=== PATIENT | female | born 2000 | race Two or more races ===

== ENCOUNTER 2023-02-21 13:33 | Emergency (ER) | payer MEDICAID, OTHER ==
[~2023-02-21] VITALS: Ht 162.6 cm; Wt 93.1 kg
[2023-02-21 14:23] VITALS: BP 139/85
== END 2023-02-21 16:53 | disposition home or self-care (01) ==
LOC: ER 13:33
DX: U07.1 COVID-19 (principal)
CPT/HCPCS: 36415; 87426; 87804